=== PATIENT | female | born 1990 | race Two or more races ===

== ENCOUNTER 2025-05-19 06:17 | Emergency (ER) | payer MEDICAID, OTHER ==
[~2025-05-19] VITALS: Ht 154.9 cm; Wt 68.5 kg
[2025-05-19 07:29] VITALS: BP 143/101; PULSE 102; RESP 18; TEMP 97.7; O2SAT 98
--- NOTE | 2025-05-19 07:29 | ED.PDOC ---
History of Present Illness HPI Comments This is a 35 year old female presenting to the ED with chief complaint of facial pain/abdominal pain. Patient reports that she has been experiencing mild abdominal pain since removing her IUD on , however, she started to have bilateral facial burning pain since yesterday. Patient relays that her IUD was for the past 2 years and only took it out herself as it became dislodged and was causing discomfort. Patient unsure if both pains are related. Patient denies any N/V/D, headache, dizziness, fever, chills, or chest pain. Chief Complaint: Face pain Time Seen by MD: 07:27 Reviewed Notes: Nurses Notes, Medications, Allergies Allergies: Coded Allergies: NO KNOWN ALLERGIES (Unverified , 05/19/25) Information Source: Patient Mode of Arrival: Ambulatory Severity: Mild Timing: Days Duration: Since onset Prehospital treatment: None Past Medical History PAST MEDICAL HISTORY: Denies Surgical History: Denies all surgeries ELECTRONIC ENGINEERING TECHNICIAN History: No Pertinent ELECTRONIC ENGINEERING TECHNICIAN History Family History Family History: Reviewed,noncontributory to illness Social History Smoker: Non-Smoker Alcohol: Denies ETOH Use Drugs: Denies Drug Use Lives In: Home Constitutional: denies: chills, diaphoresis, fatigue, fever, malaise, sweats, weakness, others EENTM: denies: blurred vision, double vision, ear bleeding, ear discharge, ear drainage, ear pain, ear ringing, eye pain, eye redness, hearing loss, mouth pain, mouth swelling, nasal discharge, nose bleeding, nose congestion, nose pain, photophobia, tearing, throat pain, throat swelling, voice changes, others Respiratory: denies: cough, hemoptysis, orthopnea, SOB at rest, shortness of breath, SOB with excertion, stridor, wheezing, others Cardiovascular: denies: chest pain, dizzy spells, diaphoresis, Dyspnea on exertion, edema, irregular heart beat, left arm pain, lightheadedness, palpita tions, PND, syncope, others Gastrointestinal: reports: abdominal pain; denies: abdomen distended, blood streaked bowels, constipated, diarrhea, dysphagia, difficulty swallowing, hematemesis, melena, nausea, poor appetite, poor fluid intake, rectal bleeding, rectal pain, vomiting, others Genitourinary: denies: abnormal vagina bleeding, burning, dyspareunia, dysuria, flank pain, frequency, hematuria, incontinence, pain, , vagina discharg e, urgency, others Neurological: denies: dizziness, fainting, headache, left sided numbness, left sided weakness, numbness, paresthesia, pre-existing deficit, right sided numbness, right sided weakness, seizure, speech problems, tingling, tremors, weakness, others Musculoskeletal: reports: others (Facial pain); denies: back pain, gout, joint pain, joint swelling, muscle pain, muscle stiffness, neck pain Integumetry: denies: bruises, change in color, change in hair/nails, dryness, laceration, lesions, lumps, rash, wounds, others Allergic/Immunocompromised: denies: Difficulty Healing, Frequent Infections, Hives, Itching, others Hematologic/Lymphatic: denies: anemia, blood clots, easy bleeding, easy bruising, swollen glands, others Endocrine: denies: excessive hunger, excessive sweating, excessive thirst, excessive urination, flushing, intolerance to cold, intolerance to heat, unexplained weight gain, unexplained weight loss, others Psychiatric: denies: anxiety, bipolar disorder, depression, hopeless, panic disorder, schizophrenia, sleepless, suicidal, others All Other Systems: Reviewed and Negative Physical Exam General Appearance: Mild Distress, Normal HEENT: Normal ENT Inspection, PERRL/EOMI, Pharynx Normal, TMs Normal, Other (Facial pain mostly beside the eyes with a burning sensation) Neck: Full Range of Motion, Non-Tender, Normal, Normal Inspection Respiratory: Chest Non-Tender, Lungs Clear, No Accessory Muscle Use, No Respiratory Distress, Normal Breath Sounds Cardiovascular: No Edema, No JVD, No Murmur, No Gallop, Normal Peripheral Pulses, Regular Rate/Rhythm Breast Exam: Deferred Gastrointestinal: No Organomegaly, Non Tender, No Pulsatile Mass, Normal Bowel Sounds, Soft Genitalia: Deferred Pelvic: Deferred Rectal: Deferred Extremities: No calf tenderness, Normal capillary refill, Normal inspection, Normal range of motion, Non-tender, No pedal edema Musculoskeletal : Apperance: Normal 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 Was a procedure done?: No Differential Dx Considerations may include: Hormonal withdrawal removal of the IUD X-Ray, Labs, Meds, VS Vital Signs Date Time Temp Pulse Resp B/P (MAP) Pulse Ox O2 Delivery O2 Flow Rate FiO2 05/19/25 07:29 102 18 98 Room Air* 0 21 05/19/25 07:29 97.7 102 18 143/101 (115) 98 97.7 05/19/25 06:19 98.3 106 16 144/97 97 98.3 Current Medications Medications (Trade) Dose Ordered Sig/Hamilton Route Start Time Stop Time Status Last Admin Ketorolac Tromethamine (Toradol Injection) 60 mg ONCE ONCE IM 05/19/25 07:45 05/19/25 07:46 05/19/25 07:39 Time of 1ST Reevaluation: 07:30 Reevaluation 1ST: Unchanged Time of 2ND Reevaluation: 07:43 Reevaluation 2ND: Unchanged 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, 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 Patient Education/Counseling: Diagnosis, Treatment, Prognosis, Need For Follow Up Family Education/Counseling: Diagnosis, Treatment, Prognosis, Need For Follow Up, No Family Present SEPSIS Sepsis Screen Date sepsis recognized/suspect: May 19, 2025 Time Sepsis recognized/suspect: 623 Recent Procedure: No On Antibiotic Therapy: No Respiratory Rate >20: No Heart Rate >90: Yes Temp<36 C (96.8 F) or >38.3 C: No SBP <90 or MAP <65 mmHG: No New Acute Mental Status Change: No Is the patient on CPAP, BIPAP,: No Physician Orders Ketorolac Injection (Toradol Injection) (05/19/25 07:45) Vital Signs Date Time Temp Pulse Resp B/P (MAP) Pulse Ox O2 Delivery O2 Flow Rate FiO2 05/19/25 07:29 102 18 98 Room Air* 0 21 05/19/25 07:29 97.7 102 18 143/101 (115) 98 97.7 05/19/25 06:19 98.3 106 16 144/97 97 98.3 Medications Medications Dose Ordered Sig/Hamilton Route Start Time Stop Time Status Last Admin Dose Admin Ketorolac Tromethamine 60 mg ONCE ONCE IM 05/19/25 07:45 05/19/25 07:46 05/19/25 07:39 Departure 1 Departure Time of Disposition: 07:45 Impression: Primary Impression: Atypical facial pain Disposition: 01 HOME / SELF CARE / HOMELESS Condition: Good Additional Instructions: To follow up with your survey cad technician as soon as possible Discharged With: Self Critical Care Note Critical Care Time?: No Stability Stability form required: No Heart Score Heart Score: Heart Score Response (Comments) Value History N/A 0 EKG N/A 0 Age <45 0 Risk Factors No known risk factors 0 Troponin N/A 0 Total 0 I personally scribed for JOSH ZHANG MD ([email or web address]) on 05/19/25 at 07:29. Electronically submitted by Uday Joyner ([email or web address]). JOSH ZHANG MD May 19, 2025 07:29
[2025-05-19] MEDS: KETOROLAC TROMETH 60MG/2ML VIAL IM ONE (07:39)
== END 2025-05-19 08:18 | disposition home or self-care (01) ==
LOC: ER 06:23
DX: G50.1 Atypical facial pain (principal); Z79.899 Other long term (current) drug therapy
CPT/HCPCS: 96372; 99283; J1885